=== PATIENT | female | born 1985 | race Caucasian/White ===

== ENCOUNTER → 2023-04-13 | Outpatient (CLI) | payer BC ==
[2023-04-13 14:50] LABS: BASO # 0.04 K/mm3 (0.02-0.10); EOS # 0.38 K/mm3 (0.04-0.40); EOS % 3.2 % (1.0-5.0); HEMATOCRIT 41.7 % (37.0-47.0); HEMOGLOBIN 13.5 g/dL (12.5-16.0); LYMPH# 3.01 K/mm3 (1.50-4.00); MEAN CELL VOLUME 92 fl (78-100); MEAN CORPUSCULAR HEMOGLOBIN 30 pg (27-31); MEAN CORPUSCULAR HGB CONC 32 g/dL (33-37); MEAN PLATELET VOLUME 10.7 fl (7.4-10.4); MONO # 0.48 K/mm3 (0.20-0.80); NEU # 7.95 K/mm3 (1.40-6.50); PLATELET COUNT 223 K/mm3 (130-400); RED BLOOD COUNT 4.55 M/mm3 (4.10-5.30); RED CELL DISTRIBUTION WIDTH 13.6 % (11.5-14.5); WHITE BLOOD COUNT 11.9 K/mm3 (4.8-10.8)
[2023-04-13 15:06] LABS: POTASSIUM 3.7 mmol/L (3.5-5.1)
[2023-04-13 15:07] LABS: CALCIUM 8.9 mg/dL (8.3-10.5)
[2023-04-13 15:08] LABS: TOTAL PROTEIN 7.1 g/dL (6.4-8.3)
[2023-04-13 15:10] LABS: TOTAL BILIRUBIN 0.7 mg/dL (0.2-1.2)
== END ==
LOC: LAB 14:18
PROVIDERS: Nurse Practitioner
DX: Z00.00 Encounter for general adult medical examination without abnormal findings (principal); Z23 Encounter for immunization; R92.8 Other abnormal and inconclusive findings on diagnostic imaging of breast

== ENCOUNTER → 2023-11-09 | Outpatient (CLI) | payer BC ==
[2023-12-28 10:50] LABS: CALCIUM 9.1 mg/dL (8.3-10.5)
[2023-12-28 10:56] LABS: HEMATOCRIT 31.4 % (37.0-47.0); MEAN PLATELET VOLUME 10.7 fl (7.4-10.4); RED BLOOD COUNT 3.36 M/mm3 (4.10-5.30); RED CELL DISTRIBUTION WIDTH 14.4 % (11.5-14.5); WHITE BLOOD COUNT 9.4 K/mm3 (4.8-10.8)
[2023-12-28 13:06] LABS: PARTIAL THROMBOPLASTIN TIME 21.4 SECONDS (21.0-32.0); PROTHROMBIN TIME 10.1 SECONDS (9.0-12.0)
== END ==
LOC: LAB 01:00
PROVIDERS: Nurse Practitioner Family
DX: R94.39 Abnormal result of other cardiovascular function study (principal)

== ENCOUNTER → 2023-12-14 | Outpatient (CLI) | payer BC ==
[2023-12-14 09:07] LABS: BASO # 0.04 K/mm3 (0.02-0.10); EOS # 0.24 K/mm3 (0.04-0.40); EOS % 2.2 % (1.0-5.0); HEMATOCRIT 29.7 % (37.0-47.0); HEMOGLOBIN 8.8 g/dL (12.5-16.0); LYMPH# 1.81 K/mm3 (1.50-4.00); MEAN CELL VOLUME 89 fl (78-100); MEAN CORPUSCULAR HEMOGLOBIN 26 pg (27-31); MEAN CORPUSCULAR HGB CONC 30 g/dL (33-37); MEAN PLATELET VOLUME 10.3 fl (7.4-10.4); MONO # 0.49 K/mm3 (0.20-0.80); PLATELET COUNT 416 K/mm3 (130-400); RED BLOOD COUNT 3.35 M/mm3 (4.10-5.30); RED CELL DISTRIBUTION WIDTH 13.8 % (11.5-14.5)
== END ==
LOC: LAB 08:50
PROVIDERS: Nurse Practitioner
DX: N93.9 Abnormal uterine and vaginal bleeding, unspecified (principal)

== ENCOUNTER 2024-08-11 06:02 | Emergency (ER) | payer BC ==
[~2024-08-11] VITALS: Ht 175.3 cm; Wt 142.3 kg
[2024-08-11] MEDS ORDERED: ATORVASTATIN CA80 MG PO (06:08)
[2024-08-11] MEDS ORDERED: METOPROLOL SUCC50 M1 PO (06:08)
[2024-08-11] MEDS ORDERED: PRILOSEC 20MG20 MG PO (06:08)
[2024-08-11] MEDS ORDERED: BUSPIRONE5 MG PO (06:09)
[2024-08-11] MEDS ORDERED: Ondansetron 4 MG/2 ML VIAL IV ONE (06:45)
[2024-08-11] MEDS ORDERED: NS 1,000 ML IV SCH (06:45)
[2024-08-11] MEDS ORDERED: fentaNYL 100 MCG/2 ML VIAL IV ONE (06:45)
[2024-08-11 07:10] LABS: BASO # 0.03 K/mm3 (0.02-0.10); EOS # 0.26 K/mm3 (0.04-0.40); HEMATOCRIT 43.9 % (37.0-47.0); HEMOGLOBIN 14.3 g/dL (12.5-16.0); LYMPH# 2.26 K/mm3 (1.50-4.00); MEAN CELL VOLUME 91 fl (78-100); MEAN CORPUSCULAR HEMOGLOBIN 30 pg (27-31); MEAN CORPUSCULAR HGB CONC 33 g/dL (33-37); MEAN PLATELET VOLUME 10.9 fl (7.4-10.4); MONO # 0.56 K/mm3 (0.20-0.80); NEU # 10.05 K/mm3 (1.40-6.50); PLATELET COUNT 263 K/mm3 (130-400); RED BLOOD COUNT 4.84 M/mm3 (4.10-5.30); RED CELL DISTRIBUTION WIDTH 13.2 % (11.5-14.5); WHITE BLOOD COUNT 13.2 K/mm3 (4.8-10.8)
[2024-08-11 07:15] LABS: SODIUM 141 mmol/L (136-145)
[2024-08-11 07:16] LABS: CALCIUM 9.4 mg/dL (8.3-10.5)
[2024-08-11 07:18] LABS: GLUCOSE 136 mg/dL (65-105); TOTAL PROTEIN 7.9 g/dL (6.4-8.3)
[2024-08-11 07:18] LABS: URINE COLOR YELLOW (YELLOW)
[2024-08-11 07:19] LABS: PH-URINE 5.5 (5.0 - 8.0); URINE APPEARANCE SLIGHTLY CLOUDY (CLEAR); URINE BILIRUBIN 1+ (NEGATIVE); URINE GLUCOSE NEGATIVE (NEGATIVE); URINE KETONE TRACE (NEGATIVE); URINE NITRATE NEGATIVE (NEGATIVE); URINE PROTEIN(semi-quant) 1+ (NEGATIVE)
[2024-08-11 07:19] LABS: CARBON DIOXIDE 23 mmol/L (22-29); TOTAL BILIRUBIN 0.6 mg/dL (0.2-1.2)
[2024-08-11 07:20] LABS: URINE BLOOD 2+ (NEGATIVE); URINE LEUKOCYTE ESTERASE NEGATIVE (NEGATIVE)
[2024-08-11 07:21] LABS: URINE MUCUS PRESENT (NOT PRESENT)
[2024-08-11 07:23] LABS: AST-SGOT 15 U/L (5-34)
[2024-08-11 07:25] LABS: ALT/SGPT 22 U/L (0-55)
[2024-08-11 07:27] LABS: LIPASE 24 U/L (8-78)
[2024-08-11 07:33] LABS: TROPONIN-I < 0.030 ng/mL (0.00-0.033)
[2024-08-11] MEDS ORDERED: Famotidine 20 MG/2 ML VIAL IV ONE (07:45)
[2024-08-11] MEDS ORDERED: Ketorolac 30 MG/ML VIAL IV ONE (08:00)
[2024-08-11] MEDS ORDERED: Iohexol 300 - 100 ML VIAL IV ONE (09:09)
[2024-08-11] MEDS ORDERED: cefTRIAXone 1 G in Water For Injection,Sterile 10 ML IV SCH (09:30)
[2024-08-11] MEDS ORDERED: 1/2 NS 1,000 ML IV SCH (09:45)
[2024-08-11] MEDS ORDERED: oxyCODONE/Acetaminophen 5-325 MG TAB PO ONE (11:45)
[2024-08-11] MEDS ORDERED: Acetaminophen 325 MG TAB PO ONE (11:45)
[2024-08-11] MEDS ORDERED: Morphine 4 MG/ML VIAL IV ONE (13:00)
[2024-08-11 14:05] VITALS: BP 121/70
== END 2024-08-11 14:25 | disposition short-term general hospital (02) ==
LOC: ED 06:02
PROVIDERS: Nurse Practitioner
DX: K80.00 Calculus of gallbladder with acute cholecystitis without obstruction (principal); F17.200 Nicotine dependence, unspecified, uncomplicated
CPT/HCPCS: J0696; J1885; J2270; J2405; J2765; J3010; J3490; J7030; Q9967